=== PATIENT | male | born 1985 | race Caucasian/White ===

== ENCOUNTER 2016-10-11 18:31 | Emergency (ER) | payer MEDICAID ==
[~2016-10-11] VITALS: Ht 177.8 cm; Wt 81.6 kg
[2016-10-11 20:08] LABS: Basophils # (auto) 0 uL; Basophils % (auto) 0.5 % (0.0-2.0); Eosinophils # (auto) 0.1 uL; Eosinophils % (auto) 0.8 % (0.0-7.0); Hematocrit 51.5 % (41.0-53.0); Lymphocytes # (auto) 1.9 uL; Lymphocytes % (auto) 26.5 % (10.0-50.0); Mean Corpuscular Hemoglobin 30.8 pg (28.0-32.0); Mean Corpuscular Hgb Conc. 33.1 g/dL (32.0-36.0); Mean Corpuscular Volume 92.9 fL (80.0-100.0); Monocytes # (auto) 0.5 uL; Monocytes % (auto) 7.5 % (0.0-12.0); Neutrophils # (auto) 4.5 uL; Neutrophils % (auto) 64.7 % (37.0-80.0); Platelet Count (auto) 226 10^3/uL (140-450)
[2016-10-11 20:13] LABS: Urine Bilirubin Negative (Negative); Urine Color Red (Yellow); Urine Glucose Normal (Normal); Urine Ketone Negative (Negative); Urine Mucus FEW (None Seen); Urine Nitrite Negative (Negative); Urine RBC 2677 /hpf (0 - 3); Urine Urobilinogen Normal (Negative); Urine pH 8.5 (5.0-8.0)
[2016-10-11 20:15] LABS: Urine Blood 3+ /uL (Negative)
[2016-10-11 20:33] LABS: Albumin 4.4 g/dL (3.4-5.0); BUN/Creatinine Ratio 9.2; Calcium 9.3 mg/dL (8.5-10.1); Magnesium 2.2 mg/dL (1.6-2.6); Potassium 3.9 mmol/L (3.5-5.1)
[2016-10-11 20:36] LABS: Bilirubin, Total 0.7 mg/dL (0.2-1.0); Total Protein 8.2 g/dL (6.4-8.2)
[2016-10-12 03:11] VITALS: BP 125/77
[2016-10-12] MEDS ORDERED: MAGNESIUM CITRATE SOLUTION 300 ML BTL PO ONE (05:30)
[2016-10-12] MEDS ORDERED: LACTULOSE 20Gm/30ML SOLN PO ONE (05:30)
== END 2016-10-12 06:12 | disposition home or self-care (01) ==
LOC: ER 18:49
DX: N39.0 Urinary tract infection, site not specified (principal); K59.00 Constipation, unspecified; F12.10 Cannabis abuse, uncomplicated; Z87.442 Personal history of urinary calculi; Z88.1 Allergy status to other antibiotic agents; Z88.0 Allergy status to penicillin
CPT/HCPCS: 36415; 74176; 80053; 81001; 83690; 83735; 85025; 94761; 99285; G0434

== ENCOUNTER 2016-10-18 19:33 | Emergency (ER) | payer MEDICAID ==
[~2016-10-18] VITALS: Ht 177.8 cm; Wt 81.6 kg
[2016-10-18 20:26] LABS: Urine Bilirubin Negative (Negative); Urine Blood 3+ /uL (Negative); Urine Color Yellow (Yellow); Urine Glucose Normal (Normal); Urine Hyaline Cast FEW /lpf (0 - 2); Urine Ketone Negative (Negative); Urine Mucus FEW (None Seen); Urine Nitrite Negative (Negative); Urine RBC 211 /hpf (0 - 3); Urine Urobilinogen Normal (Negative); Urine pH 5.5 (5.0-8.0)
[2016-10-18 20:39] LABS: Basophils # (auto) 0.1 uL; Basophils % (auto) 0.4 % (0.0-2.0); Eosinophils # (auto) 0 uL; Eosinophils % (auto) 0.3 % (0.0-7.0); Hematocrit 46.8 % (41.0-53.0); Hemoglobin 15.5 g/dL (13.5-17.5); Lymphocytes # (auto) 1.4 uL; Lymphocytes % (auto) 10.7 % (10.0-50.0); Mean Corpuscular Hemoglobin 30.8 pg (28.0-32.0); Mean Corpuscular Hgb Conc. 33.2 g/dL (32.0-36.0); Mean Corpuscular Volume 92.6 fL (80.0-100.0); Monocytes # (auto) 0.7 uL; Monocytes % (auto) 5.4 % (0.0-12.0); Neutrophils # (auto) 10.6 uL; Neutrophils % (auto) 83.2 % (37.0-80.0); Platelet Count (auto) 225 10^3/uL (140-450); Red Cell Distribution Width 12.2 % (11.6-16.0); White Blood Cell 12.8 10^3/uL (4.4-10.8)
[2016-10-19 03:44] LABS: Calcium 8.9 mg/dL (8.5-10.1); Potassium 3.7 mmol/L (3.5-5.1)
[2016-10-19 03:46] LABS: BUN/Creatinine Ratio 8.9
[2016-10-19 03:48] LABS: Bilirubin, Total 0.9 mg/dL (0.2-1.0); Total Protein 7.6 g/dL (6.4-8.2)
[2016-10-19] MEDS ORDERED: KETOROLAC TROMETH 30 MG/ML 1ML VIAL IV ONE (04:00)
[2016-10-19] MEDS ORDERED: TAMSULOSIN HYDROCHLORIDE 0.4 MG CAP PO ONE (04:00)
[2016-10-19] MEDS ORDERED: SODIUM CHLORIDE 0.9% 1,000 ML IV ONE (04:00)
[2016-10-19 05:30] VITALS: BP 128/74
== END 2016-10-19 05:42 | disposition home or self-care (01) ==
LOC: ER 19:36
DX: N20.0 Calculus of kidney (principal); R31.9 Hematuria, unspecified; F12.10 Cannabis abuse, uncomplicated; Z88.0 Allergy status to penicillin; Z88.1 Allergy status to other antibiotic agents
CPT/HCPCS: 36415; 74176; 80053; 81001; 82150; 83690; 85025; 85049; 96361; 96374; 99285; J1885; J7030

== ENCOUNTER 2024-10-09 15:42 | Emergency (ER) | payer MEDICAID ==
[~2024-10-09] VITALS: Ht 180.3 cm; Wt 75.0 kg
[2024-10-09 16:41] LABS: Urine Bacteria None Seen /hpf (None Seen)
--- NOTE | 2024-10-09 16:46 | ED.PDOC ---
General HPI Comments HPI: Poor Historian. 39-year-old male presents to emergency department for evaluation of two week history of urinary symptoms where he feels pressure when he voids urine. It is typically normal in the morning but he comes to a sudden abrupt interruption of him voiding without any explanation. He has a minimal suprapubic discomfort. Denies any other acute symptoms. Past Medcial History: Chronic constipation, chronic back pain. Past Surgical History: Denies any Marijuana abuse. REVIEW OF SYSTEMS: CONSTITUTIONAL: Denies acute: fever, diaphoresis, chills, generalized weakness. HEAD: Denies acute: headache, photophobia Eyes: Denies acute: Double vision, vision loss, eye pain, eye discharge. EARS: Denies acute: tinnitus, hearing loss, ear discharge, ear pain, THROAT: Denies acute: sore throat, swelling, difficulty swallowing , pain with swallowing, change in voice. NECK: Denies acute: neck pain, neck swelling, stiff neck. HEART: Denies acute : chest pain, palpitations, LUNGS: Denies acute: SOB, wheezing, cough, hemoptysis ABDOMEN: Denies acute: abdominal pain, Nausea, Vomiting, diarrhea, melena , hematemesis, hematochezia SKIN: Denies acute: rash, redness, lesions, itchiness. EXTREMITIES: Denies acute: calf pain, numbness, tingling, weakness, denies pain in extremity. Denies acute: Low back pain. Neuro: Denies acute: focal neurological deficit, motor or sensory focal neurological deficit, tremors, seizure like activity, confusion, dizziness, change in mental status, loss of bowel or bladder function, cauda equina like symptoms. : Denies acute: dysuria, hematuria, flank pain, increase in urinary frequency. PSYCH: Denies acute: hallucination, suicidal ideation, homicidal ideation. FEMALE: Denies acute: abnormal vaginal bleeding, foul odor, unusual discharge. PHYSICAL EXAM: General: no acute distress, awake and alert. Head: normocephalic, atraumatic. Neck: supple, trachea is midline, no swelling. Throat: Normal phonation. Eyes:, no erythema, no purulent discharge, no proptosis, no icterus. Heart: regular rate, regular rhythm, no significant murmur appreciated. Lungs: no apparent respiratory distress, Able to speak in full sentences. No wheezing, no rhonchi, no crackles. No stridors Clear to auscultation bilaterally. Abdomen: Suprapubic mild tender to palpation, non distended, soft, no guarding, no rebound, + bowel sounds. Neuro: Awake, Alert, oriented to name, self, situation, follows commands GCS=15. Speech is normal. Skin: no petechia, no purpura, no cyanosis, non-pale, not jaundice. Lower extremities: --no - Pitting edema no deformity, no focal swelling, no calf TTP. Makes eye contact. moves all four extremities. Face: no apparent facial droop. Ambulating in the ED independently. Chief Complaint: Urinary Time Seen by MD: 15:45 Primary Care Provider: VARUN Bright notes: Nurses Notes, Medications, Allergies Allergies: Coded Allergies: Amoxicillin (Verified Allergy, Unknown, 10/18/16) Clindamycin (Verified Allergy, Unknown, 10/18/16) Penicillins (Verified Allergy, Unknown, 10/18/16) Information Source: Patient Mode of Arrival: Ambulatory Past Medical History PAST MEDICAL HISTORY: Kidney Stones Surgical History: Denies all surgeries Family History Family History: Unknown Social History Smoker: Non-Smoker Alcohol: Denies ETOH Use Drugs: Marijuana Lives In: Home X-Ray, Labs, Meds, VS Vital Signs Date Time Temp Pulse Resp B/P (MAP) Pulse Ox O2 Delivery O2 Flow Rate FiO2 10/09/24 23:22 98 Room Air* 0 21 10/09/24 22:56 97.6 72 18 132/83 (99) 97 97.6 10/09/24 16:20 98.3 78 16 143/94 (110) 100 Lab Test 10/09/24 16:38 10/09/24 16:19 Range/Units White Blood Count 8.7 4.4-10.8 10^3/uL Red Blood Count 5.19 4.5-5.90 10^6/uL Hemoglobin 16.7 13.5-17.5 g/dL Hematocrit 48.7 41.0-53.0 % Mean Corpuscular Volume 93.9 80.0-100.0 fL Mean Corpuscular Hemoglobin 32.2 H 28.0-32.0 pg Mean Corpuscular Hemoglobin Concent 34.3 32.0-36.0 g/dL Red Cell Distribution Width 13.2 11.8-14.3 % Platelet Count 248 140-450 10^3/uL Mean Platelet Volume 7.3 6.9-10.8 fL Neutrophils (%) (Auto) 70.5 37.0-80.0 % Lymphocytes (%) (Auto) 21.6 10.0-50.0 % Monocytes (%) (Auto) 7.0 0.0-12.0 % Eosinophils (%) (Auto) 0.4 0.0-7.0 % Basophils (%) (Auto) 0.5 0.0-2.0 % Neutrophils # (Auto) 6.1 1.6-8.6 10 ^3/uL Lymphocytes # (Auto) 1.9 0.4-5.4 10 ^3/uL Monocytes # (Auto) 0.6 0-1.3 10 ^3/uL Eosinophils # (Auto) 0 0-0.8 10 ^3/uL Basophils # (Auto) 0 0-0.2 10 ^3/uL Nucleated Red Blood Cells 0.0 % Sodium Level 140 136-145 mmol/L Potassium Level 4.0 3.5-5.1 mmol/L Chloride Level 105 98-107 mmol/L Carbon Dioxide Level 30 20-31 mmol/L Anion Gap 5 5-15 Blood Urea Nitrogen 12 9-23 mg/dL Creatinine 1.15 0.700-1.30 mg/dL Glomerular Filtration Rate Calc 83 >90 mL/min BUN/Creatinine Ratio 10.4 10.0-20.0 Serum Glucose 91 74-106 mg/dL Lactic Acid Level 1.5 0.4-2.0 mmol/L Calcium Level 10.2 8.7-10.4 mg/dL Total Bilirubin 0.7 0.2-1.0 mg/dL Aspartate Amino Transferase (AST) 22 13-40 U/L Alanine Aminotransferase (ALT) 30 7-40 U/L Alkaline Phosphatase 86 46-116 U/L Total Protein 7.4 5.7-8.2 g/dL Albumin 4.7 3.2-4.8 g/dL Urine Color Yellow Yellow Urine Clarity Clear Clear Urine pH 6.5 5.0-9.0 Urine Specific [place] 1.028 1.001-1.035 Urine Protein Trace H Negative Urine Ketones Trace Negative Urine Blood Negative Negative /uL Urine Nitrite Negative Negative Urine Bilirubin Negative Negative Urine Urobilinogen Normal Negative mg/dL Urine Leukocyte Esterase Negative Negative /uL Urine RBC 3 0 - 3 /hpf Urine WBC 1 0 - 3 /hpf Urine Squamous Epithelial Cells None seen <5 /hpf Urine Bacteria None seen None Seen /hpf Urine Mucus Few None Seen Urine Glucose Normal Normal mg/dL Urine Opiates Screen Neg NEGATIVE Urine Fentanyl Screen Neg NEGATIVE Urine Barbiturates Screen Neg NEGATIVE Urine Phencyclidine Screen Neg NEGATIVE Urine Amphetamines Screen Neg NEGATIVE Urine Benzodiazepines Screen Neg NEGATIVE Urine Cocaine Screen Neg NEGATIVE Urine Cannabinoids Screen Pos NEGATIVE CT OF THE ABDOMEN AND PELVIS WITH CONTRAST. HISTORY: urinary symptoms COMPARISON: None TECHNIQUE: Helical axial CT images of the abdomen and pelvis were obtained with intravenous contrast. Multiplanar reformats. One or more of the following radiation dose reduction techniques were used for this examination: automated exposure control, adjustment of the mA and/or kV according to patient size, use of iterative reconstruction technique. FINDINGS: Imaged lung bases are grossly clear. Liver: Subcentimeter hypodensity in the right hepatic dome may represent a cyst but is otherwise too small to further characterize. Few additional smaller hypodensities also noted scattered in the lower right hepatic lobe. Gallbladder and biliary system: No sizable, radiopaque cholelithiasis or biliary ductal dilatation. Pancreas: Negative. Spleen: Negative. Adrenal Glands: Negative. Kidneys and collecting system: No hydroureteronephrosis. Retroperitoneum: No evidence of abdominal aortic aneurysm. Lymph nodes: No discretely enlarged lymph nodes identified. Bowel: No evidence of bowel obstruction. Normal caliber appendix. No free intraperitoneal air or fluid identified. Moderate volume stool throughout the colon may indicate constipation. Pelvis: Bladder is underdistended, however, no sizable bladder calculus is identified. Osseous structures: No destructive osseous lesions identified. Other: Tiny fat containing umbilical hernia. IMPRESSION: No bowel obstruction, free intraperitoneal air/ fluid or sizable inflammatory collections identified at this time. Time of 1ST Reevaluation: 23:00 Reevaluation 1ST: Unchanged Patient Education/Counseling: Diagnosis Family Education/Counseling: No Family Present Departure 1 Departure Time of Disposition: 23:00 Impression: Primary Impression: Lower urinary tract symptoms Disposition: 01 HOME / SELF CARE / HOMELESS Condition: Stable Additional Instructions: Additional discharge instructions: You MUST follow-up with your primary care/family doctor in 1 to 2 days. If you are unable to see your primary care/family doctor, please return to our emergency room for re-assessment and re-evaluation in 1 to 2 days. Return to the emergency room here in our facility or to the nearest ER ALICE if your symptoms change or worsen. CONSULTATIONS: you MUST Follow-up for consultation as soon as possible with: -urology in 1-2 days. Please call for appointment. You MUST call the consultants office yourself to make an appointment. You may need to arrange that through your insurance and/or your primary/family doctor. If you are unable to see the system consultant in 1 to 2 days, you must return to our emergency room (or any other ER of your choice) for re-assessment and re-evalu ation. Adequate fluid hydration. Below is a copy of your radiological report for follow up: [place] [id number] Ph: [phone] DIAGNOSTIC IMAGING Diagnostic Imaging Report : [id number] Signed PATIENT: KASIA CHAUDHARY ACCT: [id number] UNIT: [id number] : 1985 LOC: ER ROOM / BED: / AGE / SEX: 39 / M ADM STATUS: REG ER SERVICE [id number] ORDERING PHYSICIAN: LIZ KAN DO PROCEDURE(s): ABPLIV - CT AB PEL WITH IV CON ONLY REASON: urinary symptoms ORDER NUMBER(s): [id number], ACCESSION NUMBER(s): [id number] CT OF THE ABDOMEN AND PELVIS WITH CONTRAST. HISTORY: urinary symptoms COMPARISON: None TECHNIQUE: Helical axial CT images of the abdomen and pelvis were obtained with intravenous contrast. Multiplanar reformats. One or more of the following radiation dose reduction techniques were used for this examination: automated exposure control, adjustment of the mA and/or kV according to patient size, use of iterative reconstruction technique. FINDINGS: Imaged lung bases are grossly clear. Liver: Subcentimeter hypodensity in the right hepatic dome may represent a cyst but is otherwise too small to further characterize. Few additional smaller hypodensities also noted scattered in the lower right hepatic lobe. Gallbladder and biliary system: No sizable, radiopaque cholelithiasis or biliary ductal dilatation. Pancreas: Negative. Spleen: Negative. Adrenal Glands: Negative. Kidneys and collecting system: No hydroureteronephrosis. Retroperitoneum: No evidence of abdominal aortic aneurysm. Lymph nodes: No discretely enlarged lymph nodes identified. Bowel: No evidence of bowel obstruction. Normal caliber appendix. No free intraperitoneal air or fluid identified. Moderate volume stool throughout the colon may indicate constipation. Pelvis: Bladder is underdistended, however, no sizable bladder calculus is identified. Osseous structures: No destructive osseous lesions identified. Other: Tiny fat containing umbilical hernia. IMPRESSION: No bowel obstruction, free intraperitoneal air/ fluid or sizable inflammatory collections identified at this time. ATED BY: LAKHWINDER STEPHENSON MD DICTATED DATE/TIME: 10/09/241755 SIGNED BY: LAKHWINDER STEPHENSON MD SIGNED DATE/TIME: 10/09/241755 CC: Discharged With: Self I personally scribed for LIZ KAN DO ([email or web address]) on 10/10/24 at 00:46. Electronically submitted by Basil Mata ([email or web address]). LIZ KAN DO Oct 09, 2024 16:46
[2024-10-09 16:54] LABS: Basophils # (auto) 0 10 ^3/uL (0-0.2); Basophils % (auto) 0.5 % (0.0-2.0); Eosinophils # (auto) 0 10 ^3/uL (0-0.8); Eosinophils % (auto) 0.4 % (0.0-7.0); Hematocrit 48.7 % (41.0-53.0); Hemoglobin 16.7 g/dL (13.5-17.5); Lymphocytes # (auto) 1.9 10 ^3/uL (0.4-5.4); Lymphocytes % (auto) 21.6 % (10.0-50.0); Mean Corpuscular Hemoglobin 32.2 pg (28.0-32.0); Mean Corpuscular Hgb Conc. 34.3 g/dL (32.0-36.0); Mean Corpuscular Volume 93.9 fL (80.0-100.0); Monocytes # (auto) 0.6 10 ^3/uL (0-1.3); Neutrophils # (auto) 6.1 10 ^3/uL (1.6-8.6); Neutrophils % (auto) 70.5 % (37.0-80.0); Platelet Count (auto) 248 10^3/uL (140-450); Red Blood Cells 5.19 10^6/uL (4.5-5.90); Red Cell Distribution Width 13.2 % (11.8-14.3); White Blood Cell 8.7 10^3/uL (4.4-10.8)
[2024-10-09 16:55] LABS: Urine Blood Negative /uL (Negative); Urine Clarity Clear (Clear); Urine Color Yellow (Yellow); Urine Mucus FEW (None Seen); Urine Protein, UAD TRACE (Negative); Urine Specific Gravity 1.028 (1.001-1.035); Urine Squamous Epithelial Cell None Seen /hpf (<5); Urine Urobilinogen Normal (Negative); Urine WBC 1 /hpf (0 - 3); Urine pH 6.5 (5.0-9.0)
[2024-10-09 17:11] LABS: Cannabinoid Screen, Urine Pos (NEGATIVE)
[2024-10-09 17:12] LABS: Alanine Aminotransferase 30 U/L (7-40); Albumin 4.7 g/dL (3.2-4.8); Alkaline Phosphatase 86 U/L (46-116); Anion Gap 5 (5-15); Aspartate Aminotransferase 22 U/L (13-40); BUN/Creatinine Ratio 10.4 (10.0-20.0); Bilirubin, Total 0.7 mg/dL (0.2-1.0); Blood Urea Nitrogen 12 mg/dL (9-23); Calcium 10.2 mg/dL (8.7-10.4); Carbon Dioxide 30 mmol/L (20-31); Chloride 105 mmol/L (98-107); Glucose 91 mg/dL (74-106); Sodium 140 mmol/L (136-145); Total Protein 7.4 g/dL (5.7-8.2)
[2024-10-09 17:13] LABS: Amphetamine Screen, Urine Neg (NEGATIVE); Barbiturate Scree,Urine Neg (NEGATIVE); Benzodiazephine Screen, Urine Neg (NEGATIVE); Cocaine Screen, Urine Neg (NEGATIVE); Opiate Scree,Urine Neg (NEGATIVE); Phencyclidine Screen, Urine Neg (NEGATIVE)
[2024-10-09] MEDS: IOHEXOL 300 MG/ML 100ML BOTTLE IJ ONE (17:41)
--- NOTE | 2024-10-09 17:59 | DVH ---
CT OF THE ABDOMEN AND PELVIS WITH CONTRAST. HISTORY: urinary symptoms COMPARISON: None TECHNIQUE: Helical axial CT images of the abdomen and pelvis were obtained with intravenous contrast. Multiplanar reformats. One or more of the following radiation dose reduction techniques were used fo r this examination: automated exposure control, adjustment of the mA and/or kV according to patient s ize, use of iterative reconstruction technique. FINDINGS: Imaged lung bases are grossly clear. Liver: Subcentimeter hypodensity in the right hepatic dome may represent a cyst but is otherwise too small to further characterize. Few additional smaller hypodensities also noted scattered in the lower right hepatic lobe. Gallbladder and biliary system: No sizable, radiopaque cholelithiasis or biliary ductal dilatation. Pancreas: Negative. Spleen: Negative. Adrenal Glands: Negative. Kidneys and collecting system: No hydroureteronephrosis. Retroperitoneum: No evidence of abdominal aortic aneurysm. Lymph nodes: No discretely enlarged lymph nodes identified. Bowel: No evidence of bowel obstruction. Normal caliber appendix. No free intraperitoneal air or flui d identified. Moderate volume stool throughout the colon may indicate constipation. Pelvis: Bladder is underdistended, however, no sizable bladder calculus is identified. Osseous structures: No destructive osseous lesions identified. Other: Tiny fat containing umbilical hernia. IMPRESSION: No bowel obstruction, free intraperitoneal air/ fluid or sizable inflammatory collections identified at this time.
[2024-10-09 22:56] VITALS: BP 132/83; PULSE 72; RESP 18; TEMP 97.6
[2024-10-09 23:22] VITALS: O2SAT 98
== END 2024-10-09 23:26 | disposition home or self-care (01) ==
LOC: ER 15:42
DX: N39.0 Urinary tract infection, site not specified (principal); G89.29 Other chronic pain; Z88.0 Allergy status to penicillin; Z88.1 Allergy status to other antibiotic agents
CPT/HCPCS: 36415; 74177; 80053; 80307; 81001; 83605; 85025; 99285; Q9967